=== PATIENT | female | born 1960 | race Asian ===

== ENCOUNTER 2018-07-04 17:07 | Emergency (ER) | payer OTHER ==
[~2018-07-04] VITALS: Ht 167.6 cm; Wt 71.7 kg
[2018-07-04 19:30] VITALS: BP 127/76; TEMP 98
== END 2018-07-04 19:30 | disposition home or self-care (01) ==
LOC: ED 17:07
DX: S16.1XXA Strain of muscle, fascia and tendon at neck level, initial encounter (principal); S39.012A Strain of muscle, fascia and tendon of lower back, initial encounter; V43.53XA Car driver injured in collision with pick-up truck in traffic accident, initial encounter; Y92.89 Other specified places as the place of occurrence of the external cause
CPT/HCPCS: 96372; 99283; J1885

== ENCOUNTER 2018-08-05 09:30 | Outpatient (CLI) | payer OTHER | END 2018-08-05 19:21 | disposition home or self-care (01) | LOC: MRI 09:30 | DX: M54.16 Radiculopathy, lumbar region (principal) ==

== ENCOUNTER → 2022-11-18 | Outpatient (CLI) | payer OTHER | LOC: MRI 13:36 | PROVIDERS: ATTEND Orthopaedic Surgery | DX: M67.431 Ganglion, right wrist (principal) ==